=== PATIENT | female | born 1940 | race African-American/Black ===

== ENCOUNTER → 2019-07-30 | Outpatient (CLI) | payer MEDICARE, MEDICAID ==
[~2019-07-30] MED LIST: AMLO10TA80; ASPI-518; BENA40TA9; CLOP75TA15; HYDR-4135; METF1000; METO-385
== END | disposition home or self-care (01) ==
LOC: RAD 11:25
PROVIDERS: ATTEND Specialist
DX: R91.8 Other nonspecific abnormal finding of lung field (principal)
CPT/HCPCS: 71045